=== PATIENT | male | born 1935 | race Caucasian/White ===

== ENCOUNTER 2017-04-17 11:37 | Emergency (ER) | payer OTHER, MEDICARE ==
[~2017-04-17] VITALS: Ht 177.8 cm; Wt 77.1 kg
--- NOTE | ~2017-04-17 | EKG ---
[place] [address] 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1935 Requested By: yEal Sams Order Number: [id number] MD: Angel Sanders Measurements Intervals [place] Rate: 108 P: 28 VT: 197 QRS: 3 QRSD: 140 T: -28 QT: 363 QTc: 487 Interpretive Statements Sinus tachycardia Right bundle branch block Possible Inferior infarct, age indeterminate Compared to ECG 05/25/2014 05:37:11 No significant changes Electronically Signed On 04-18-2017 14:22:12 BRANCH MAKER by Angel Sanders [email or web address] <ELECTRONICALLY SIGNED> By: Angel Sanders MD, [facility] 04/18/17 1422 D: [id number] Angel Sanders MD, FAC /EPI
[~2017-04-17 11:37] MED LIST: ASPIRIN EC81 M1 PO; ATORVASTATIN CA10 MG PO; CALCIUM PO; CALCIUM500 M1 PO; CARDURA4 MG PO; DILTIAZEM 24HR360 M1 PO; FISH OIL 1,001000 M1 PO; LIVALO2 MG PO; MULTIVITAMINS PO; NORCO 5-325 TA1 EACH PO; PERINDOPRIL ERBU2 MG PO; SEROQUEL200 MG PO; VITAMIN E400 UNI6 PO; VITAMINC500 PO; WELLBUTRIN 100100 MG PO; ZOLOFT100 MG PO
[2017-04-17 12:10] LABS: ABSOLUTE NEUTROPHILS 7.5 thou/uL (1.4-8.2); BASOPHILS 0.7 % (0.0-2.0); EOSINOPHILS 4.2 % (0.0-3.0); HEMATOCRIT 37.6 % (42.0-52.0); HEMOGLOBIN 12.7 gm/dL (14.0-18.0); LYMPHOCYTES 28.4 % (24.0-44.0); MCH 31.3 pg (26.0-34.0); MCHC 33.9 g/dL (28.0-37.0); MCV 92.4 fL (80.0-100.0); PLATELET COUNT 192 thou/uL (150-400); POLYS 60.7 % (36.0-66.0); RBC 4.07 mil/uL (4.50-6.00); RDW 20.1 % (10.5-14.5); WBC 12.4 thou/uL (4.0-11.0)
[2017-04-17 12:22] LABS: ANION GAP 7 mmol/L (7-16); BUN 17 mg/dL (7-18); CHLORIDE 103 mmol/L (98-107); CO2 28 mmol/L (21-32); CREATININE 1.4 mg/dL (0.7-1.3); GLUCOSE 124 mg/dL (74-106); POTASSIUM 4.3 mmol/L (3.5-5.1); SODIUM 138 mmol/L (136-145)
[2017-04-17 12:25] LABS: TROPONIN-I < 0.04 ng/mL (<0.06)
[2017-04-17 13:47] LABS: URINE BILIRUBIN NEGATIVE (Negative); URINE BLOOD NEGATIVE (Negative); URINE CLARITY CLEAR; URINE COLOR YELLOW; URINE GLUCOSE-RANDOM* NEGATIVE (Negative); URINE KETONES NEGATIVE (Negative); URINE LEUKOCYTES-REFLEX NEGATIVE (Negative); URINE NITRITE-REFLEX NEGATIVE (Negative); URINE PROTEIN (DIPSTICK) NEGATIVE (Negative); URINE UROBILINOGEN 0.2 E.U./dl (0.2-1.0)
== END 2017-04-17 15:49 | disposition home or self-care (01) ==
LOC: ER 11:37
PROVIDERS: Emergency Medicine
DX: R07.9 Chest pain, unspecified (principal); I10 Essential (primary) hypertension; E78.00 Pure hypercholesterolemia, unspecified; F31.9 Bipolar disorder, unspecified; F41.9 Anxiety disorder, unspecified; G54.2 Cervical root disorders, not elsewhere classified; Z85.71 Personal history of Hodgkin lymphoma

== ENCOUNTER → 2019-09-25 | Outpatient (CLI) | payer OTHER, MEDICARE | LOC: SJCVCIMAG 12:43 | PROVIDERS: ATTEND Internal Medicine Cardiovascular Disease | DX: I08.8 Other rheumatic multiple valve diseases (principal); I11.9 Hypertensive heart disease without heart failure; I45.10 Unspecified right bundle-branch block; R94.31 Abnormal electrocardiogram [ECG] [EKG]; E78.00 Pure hypercholesterolemia, unspecified; F03.90 Unspecified dementia, unspecified severity, without behavioral disturbance, psychotic disturbance, mood disturbance, and anxiety; Z87.898 Personal history of other specified conditions; Z79.899 Other long term (current) drug therapy; Z82.49 Family history of ischemic heart disease and other diseases of the circulatory system; Z87.891 Personal history of nicotine dependence ==

== ENCOUNTER → 2020-04-29 | Outpatient (CLI) | payer OTHER, MEDICARE | LOC: SJCVC 14:21 | PROVIDERS: ATTEND Internal Medicine Cardiovascular Disease | DX: R94.31 Abnormal electrocardiogram [ECG] [EKG] (principal); I45.10 Unspecified right bundle-branch block; I11.9 Hypertensive heart disease without heart failure; I35.0 Nonrheumatic aortic (valve) stenosis; E78.00 Pure hypercholesterolemia, unspecified; F03.91 Unspecified dementia, unspecified severity, with behavioral disturbance; Z79.899 Other long term (current) drug therapy; Z87.891 Personal history of nicotine dependence ==

== ENCOUNTER → 2020-07-05 | Outpatient (CLI) | payer OTHER, MEDICARE | LOC: RAD 15:20 | PROVIDERS: ATTEND Family Medicine | DX: J98.11 Atelectasis (principal) ==

== ENCOUNTER 2020-11-22 22:23 | Inpatient (IN) | payer OTHER, MEDICARE ==
[~2020-11-22] VITALS: Ht 177.8 cm; Wt 78.3 kg
--- NOTE | ~2020-11-22 | EMS ---
[address] [address] EMS Patient Care Report Name: CARLOS A DE LA ROSA JR Room #: REG SILAS Iqbal#: [id number] Admission: 11/22/20 Attend Phys: Discharge: Date of : 33 Report #: [id number] THIS REPORT FOR: //name// Report Transmitted: 11/22/2020 22:02 EMS Care Summary [facility] Incident [id number] @ 11/22/2020 21:35 Incident Location [address] [place] [address] Patient CARLOS A DE LA ROSA Male, 85 Years 1935 Patient Address [address] [place] [address] Patient History Dementia,Hypertension (HTN), Patient Allergies No known allergies, Patient Medications Pantoprazole, Diltiazem, Namenda, Sertraline, Chief Complaint fall/unable to care for himself Disposition Transported No Lights/[place] Reason Falls Transported To [facility] Narrative The reported getting up to use the restroom tonight and finding the pt on the floor in the bathroom. She said she was unsure how long he had been on the floor, but said it couldn't have been very long as they hadn't been in bed for much time. The pt denied injury from the fall, but said he had some mild low [address] [address] EMS Patient Care Report Name: CARLOS A DE LA ROSA JR Room #: REG [facility]#: [id number] Admission: 11/22/20 Attend Phys: Discharge: Date of : 33 Report #: [id number] back pain from laying on the floor. The pt denied headache, nausea, shortness of breath or chest pain. He was unsure why he fell. The pt's said the pt has been falling more over the past 2 weeks. She said he has been able to get up on his own until tonight. The also said the pt has had a decline in his mentation over the past 2 weeks and she didn't think he could care for himself anymore. She wanted him taken to [facility] for evaluation. The pt said he had both Covid injections several months ago. He denied recent illness, cough or fever. The pt was laying on the floor in the bathroom in a supine position. HPI, PMH, Exam, Vitals. The pt was helped up and he was able to walk to the cot. I informed the pt and his the [place] was "high volume" and that could delay his care if they chose to go there. The said he had to go there as that is where his daycare director was. She said she was going to call the daycare director and have him make arrangements for the pt. I explained that there was no need to call him tonight and that we would take the pt to [place]. He was moved to the unit. En route: Vitals. Biocom to [place]. No orders req'd/rec'd. The pt was moved to ER#9. Care released to staff. Initial Vitals @22:17P: 82,R: 18,BP: 107/60,Pain: 2/10,GCS: 15,SpO2: 94,Revised Trauma: 12, @22:00P: 84,R: 18,BP: 108/60,Pain: 2/10,GCS: 15,Temp: 98.2F,Glucose: 136,SpO2: 97,Revised Trauma: 12, Assessments @22:13MENTAL:Person Oriented,Time Oriented,Place Oriented,Event Oriented,SKIN:HEENT:Head/Face: No Abnormalities,Neck/Airway: No Abnormalities,LUNG SOUNDS:General: No Abnormalities,ABDOMEN:General: No Abnormalities,PELVIS//GI:No Abnormalities,EXTREMITIES:Left Arm: No Abnormalities,Right Arm: No Abnormalities,Left Leg: No Abnormalities,Right Leg: No Abnormalities,PULSE:NEURO:No Abnormalities, Impression Altered Mental Status Procedures @22:18Surgical Mask on PatientResponse: Unchanged Timeline 21:33,Call Received 21:33,Psap Call 21:35,Dispatched 21:36,En Route 21:56,On Scene 21:57,At Patient 22:00,BP: 108/60 M,PULSE: 84,RR: 18 R,SPO2: 97 Ox,ETCO2: ,B,PAIN: 2,GCS: [address] [address] EMS Patient Care Report Name: CARLOS A DE LA ROSA JR Room #: REG Rasheed#: [id number] Admission: 11/22/20 Attend Phys: Discharge: Date of : 31 Report #: [id number] 15, 22:08,Depart Scene 22:17,BP: 107/60 M,PULSE: 82,RR: 18 R,SPO2: 94 Ox,ETCO2: ,BG: ,PAIN: 2,GCS: 15, 22:18,Surgical Mask on Patient,Response: Unchanged 22:19,At Destination 22:31,Call Closed Disclaimer v1.1 Copyright 2020 [employer] This EMS Care Summary contains data elements from the applicable legal record (which may be displayed differently). It is designed to provide pertinent information for the following purposes: continuity of care, clinical quality, and state data reporting. The complete legal record is available to ED staff and administrators of the receiving hospital in [facility]'s Patient Tracker. All data is provided "as is."
[2020-11-22 22:24] VITALS: BP 114/51
[2020-11-22 23:25] LABS: ABSOLUTE NEUTROPHILS 4.1 thou/uL (1.4-8.2); BASOPHILS 0.5 % (0.0-2.0); EOSINOPHILS 2.2 % (0.0-3.0); LYMPHOCYTES 17.5 % (24.0-44.0); MCH 28.2 pg (26.0-34.0); MONOCYTES 6.1 % (1.0-8.0); PLATELET COUNT 244 thou/uL (150-400); POLYS 73.7 % (36.0-66.0); RBC 1.93 mil/uL (4.50-6.00); RDW 18.7 % (10.5-14.5); WBC 5.6 thou/uL (4.0-11.0)
[2020-11-22 23:26] LABS: HEMOGLOBIN 5.4 gm/dL (14.0-18.0)
[2020-11-22 23:32] LABS: ANION GAP 8 mmol/L (7-16); BUN 45 mg/dL (7-18); CALCIUM 8.5 mg/dL (8.5-10.1); CHLORIDE 105 mmol/L (98-107); CO2 25 mmol/L (21-32); CREATININE 1.5 mg/dL (0.7-1.3); GLUCOSE 128 mg/dL (74-106); POTASSIUM 4.4 mmol/L (3.5-5.1); SODIUM 138 mmol/L (136-145)
[2020-11-22] MEDS ORDERED: DILTIAZEM ER180 M2 PO (23:35)
[2020-11-22] MEDS ORDERED: NAMENDA 10 MG T10 MG PO (23:36)
[2020-11-22] MEDS ORDERED: CRESTOR5 MG PO (23:38)
[2020-11-22 23:39] LABS: APTT 23.5 Seconds (24.5-32.8); INR 0.98; PROTIME 10.7 Seconds (10.5-12.1)
[2020-11-22] MEDS ORDERED: SEROQUEL 25 MG25 MG PO (23:40)
[2020-11-22 23:42] LABS: ALBUMIN 3.1 g/dL (3.4-5.0); SGOT 22 U/L (15-37); SGPT 23 U/L (16-63); TOTAL BILIRUBIN 0.2 mg/dL (0.2-1.0); TROPONIN-I <0.06 ng/mL (<0.06)
[2020-11-22] MEDS ORDERED: PROTONIX40 M4 PO (23:44)
[2020-11-22] MEDS ORDERED: COLACE100 MG PO (23:45)
[2020-11-22] MEDS ORDERED: VITAMIN B COMP1 EACH PO (23:45)
[2020-11-22 23:55] LABS: ANISOCYTOSIS 2+
[2020-11-23] VITALS (11 sets, daily range): BP systolic 104–139; BP diastolic 50–91
[2020-11-23 00:57] LABS: URINE BILIRUBIN NEGATIVE (Negative); URINE BLOOD NEGATIVE (Negative); URINE CLARITY CLEAR; URINE COLOR YELLOW; URINE GLUCOSE-RANDOM* NEGATIVE (Negative); URINE KETONES NEGATIVE (Negative); URINE LEUKOCYTES-REFLEX NEGATIVE (Negative); URINE NITRITE-REFLEX NEGATIVE (Negative); URINE PROTEIN (DIPSTICK) NEGATIVE (Negative); URINE UROBILINOGEN 0.2 E.U./dl (0.2-1.0)
--- NOTE | 2020-11-23 12:22 | EKG ---
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: matt : 1935 Requested By: Robert Charles Order Number: [id number] MD: Daniel Burnett Measurements Intervals [place] Rate: 81 P: -9 [place]: 205 QRS: 5 QRSD: 143 T: 1 QT: 406 QTc: 472 Interpretive Statements Sinus rhythm Right bundle branch block Inferior infarct, age indeterminate Compared to ECG 04/17/2017 11:47:34 Sinus tachycardia no longer present Myocardial infarct finding still present Electronically Signed On 11-23-2020 12:22:17 CDT by Daniel Burnett [email or web address] <ELECTRONICALLY SIGNED> By: Daniel Burnett MD 11/23/20 1222 50 50 Daniel Burnett MD /RAPHAEL
[2020-11-23 12:35] LABS: HEMATOCRIT 25.4 % (42.0-52.0)
[2020-11-23 12:37] LABS: HEMOGLOBIN 8.2 gm/dL (14.0-18.0)
--- NOTE | 2020-11-23 14:10 | NUR ---
[age] OLD MALE ADMITTED TO 2N ROOM 216. PT WAS BROUGHT IN TO ER PER EMS AFTER BEING FOUND ON THE FLOOR AT HOME FROM A FALL. PT ALERT TO SELF ONLY. PT DAUGHTER AT BEDSIDE TO GIVE INFORMATION FOR ADMISSION ASSESSMENT. VSS, IVF AND PROTONIX GTT INFUSING PER ORDER. PT NPO FOR EGD TODAY. PT DENIES PAIN/SOA. PT UP TO RESTROOM WITH STABNDBY ASSIST. WILL CONTINUE TO MONITOR.
--- NOTE | 2020-11-23 15:47 | NUR ---
PT RETURN TO ROOM FROM GI LAB.
--- NOTE | 2020-11-23 17:29 | NUR ---
PT HAD IV IN LEFT HAND BUT PULLED IT OUT.
--- NOTE | 2020-11-24 03:13 | NUR ---
ASSUMED CARE OF PT AT 2130. PT CONFUSED TO PLACE/TIME/SITUATION. DOES RESPOND TO NAME. DOES NOT FOLLOW COMMANDS THROUGH OUT. PT CONTINUOUSLY ATTEMPT TO GET OOB. AT [address] IN FITZ SOFT WRIST RESTRAINTS. PT'S DAUGHTER, NELLY, WAS NOTIFIED OF FITZ WRIST RESTRAINTS. NELLY STATE THAT SHE WILL COME SIT WITH PT IN THE AM. PT IS NOT BEING MONITORED R/T DOES NOT KEEP ON, ORDER WRITTEN FOR OK TO REMOVE MONITOR. VSS, AFEBRILE. FITZ WRIST RESTRAINTS INTACT AND SEEM TO BE EFFECTIVE, PT SLEEPING AT THIS TIME. NO BM. SLOW PROGRESS TOWARDS DC GOALS. WILL CONTINUE TO MONITOR.
[2020-11-24 03:38] LABS: HEMATOCRIT 24.8 % (42.0-52.0); HEMOGLOBIN 8.1 gm/dL (14.0-18.0); MCH 28.7 pg (26.0-34.0); MCHC 32.6 g/dL (28.0-37.0); MCV 88.1 fL (80.0-100.0); RBC 2.81 mil/uL (4.50-6.00); RDW 16.9 % (10.5-14.5); WBC 8.6 thou/uL (4.0-11.0)
[2020-11-24 04:09] VITALS: BP 114/73
--- NOTE | 2020-11-24 05:47 | NUR ---
2030 patient out of bed without assistance. Nurse responded and patient fell. See post fall assessment for status. Family notified and Andrew GONZALESP notitified. Bed alarm on and patient observed linsey.
[2020-11-24 06:24] LABS: CALCIUM 7.6 mg/dL (8.5-10.1); CREATININE 1.1 mg/dL (0.7-1.3); POTASSIUM 3.8 mmol/L (3.5-5.1)
[2020-11-24 07:41] VITALS: BP 124/73
--- NOTE | 2020-11-24 12:28 | 2DMMODE ---
[facility] [address] [place] [address] 2 D/M-MODE ECHOCARDIOGRAM Name: CARLOS A DE LA ROSA Room #: 216-P ADM IN M.R.#: [id number] Admission: 11/23/20 Attend Phys: Angela Freitas Discharge: Date of : 33 Report #: [id number] THIS REPORT FOR: cc: Manas Cox MD, Neal A. MD Lammoglia, Francisco J. MD ~ APPROVED REPORT Study performed: 11/23/2020 11:29:09 EXAM: Comprehensive 2D, Doppler, and color-flow Echocardiogram Patient Location: Bedside Room #: 216 Status: on-call BSA: 1.97 HR: 95 bpm BP: 117/66 mmHg Rhythm: NSR Other Information Study Quality: Adequate Risk Factors: Cardiac Risk Factors: HTN Indications Aortic Valve Disease Syncope 2D Dimensions IVSd: 12.57 (7-11mm) LVOT Diam: 23.00 (18-24mm) LVDd: 33.32 mm PWd: 15.12 (7-11mm) Ascending Ao: 35.83 (22-36mm) LVDs: 23.44 (25-40mm) Aortic Root: 32.77 mm LV Single Plane 4CH: 53.43 % LV Single Plane 2CH: 59.74 % Biplane EF: 55.6 % Volumes Left Atrial Volume (Systole) Single Plane 4CH: 45.16 mL Single Plane 2CH: 48.90 mL LA ESV Index: 27.00 mL/m2 [facility] [address] [address] 2 D/M-MODE ECHOCARDIOGRAM Name: CARLOS A DE LA ROSA Room #: 216-P [facility] IN .R.#: [id number] Admission: 11/23/20 Attend Phys: Angela Jose Discharge: Date of : 31 Report #: [id number] Aortic Valve AoV Peak Marques.: 4.53 m/s AO Peak Gr.: 81.92 mmHg LVOT Max P.46 mmHg AO Mean Gr.: 54.16 mmHg LVOT Mean P.04 mmHg AO V2 Mean: 3.62 m/s LVOT Max V: 0.93 m/s AO V2 VTI: 96.51 cm LVOT Mean V: 0.68 m/s EZRA (VTI): 0.87 cm2 LVOT V1 VTI: 20.67 cm EZRA Vmax: 0.83 cm2 AI Vmax: 3.44 m/s SV (LVOT): 83.50 mL AI Walsh: 5.14 m/s2 AI PHT: 195.91 ms Mitral Valve E/A Ratio: 2.6 MV Decel. Time: 157.71 ms MV E Max Marques.: 1.74 m/s MV A Marques.: 0.68 m/s MV PHT: 45.74 ms Pulmonary Valve PV Peak Marques.: 0.80 m/s PV Peak Gr.: 2.58 mmHg Tricuspid Valve TR Peak Marques.: 2.59 m/s RAP Estimate: 10.00 mmHg TR Peak Gr.: 26.81 mmHg PA Pressure: 37.00 mmHg Left Ventricle The left ventricle is normal size. There is normal LV segmental wall motion. Moderate concentric left ventricular hypertrophy. The left ventricular systolic function is normal. The left ventricular ejection fraction is within the normal range. LVEF is 55-60%. Right Ventricle The right ventricle is normal size. The right ventricular systolic function is normal. Atria The left atrium size is normal. The right atrium size is normal. Aortic Valve Aortic valve is calcified. Mild to moderate aortic regurgitation. The maximum aortic valve pressure gradient is 82 mmHg and the mean gradient is 54 mmHg. Calculated aortic valve area is 0.9 cm2. Severe aortic stenosis. [facility] [address] [place] [address] 2 D/M-MODE ECHOCARDIOGRAM Name: RJCARLOS A ALFONZO Room #: 216-P [facility] IN ..#: [id number] Admission: 11/23/20 Attend Phys: Angela Jose Discharge: Date of : 31 Report #: [id number] Mitral Valve The mitral valve is normal in structure. Trace to mild mitral regurgitation. No evidence of mitral valve stenosis. Tricuspid Valve The tricuspid valve is normal in structure. Trace to mild tricuspid regurgitation. Pulmonary artery pressure is 37 mmHg. Pulmonic Valve The pulmonary valve is normal in structure. There is no pulmonic valvular regurgitation. Great Vessels The aortic root is normal in size. The ascending aorta is normal in size. IVC is dilated and collapses >50% with inspiration. Pericardium There is no pericardial effusion. <Conclusion> The left ventricle is normal size. Moderate concentric left ventricular hypertrophy. LVEF is 55-60%. Aortic valve is calcified. Mild to moderate aortic regurgitation. The maximum aortic valve pressure gradient is 82 mmHg and the mean gradient is 54 mmHg. Calculated aortic valve area is 0.9 cm2. Severe aortic stenosis. The mitral valve is normal in structure. Trace to mild mitral regurgitation. The tricuspid valve is normal in structure. Trace to mild tricuspid regurgitation. Pulmonary artery pressure is 37 mmHg. The pulmonary valve is normal in structure. There is no pericardial effusion. <ELECTRONICALLY SIGNED> By: Ja Kauffman MD 11/24/20 1228 1228 1228 Ja Kauffman MD /INF
[2020-11-24 15:48] VITALS: BP 118/61
--- NOTE | 2020-11-24 17:59 | NUR ---
PT ALERT TO SELF ONLY. VERY RESTLESS AND SOMEWHAT AGITATED. PT PULLED OUT IV. VSS. PT TOLERATES MEDS AND MEALS. PT UP WITH ASSIST OF ONE. PT AT BEDSIDE THIS MORNING. PT DAUGHTER HERE NOW. WILL COTINUE TO MONITOR.
[2020-11-24 20:49] VITALS: BP 124/70
[2020-11-25 02:58] LABS: HEMATOCRIT 23.1 % (42.0-52.0); HEMOGLOBIN 7.3 gm/dL (14.0-18.0); MCH 28.4 pg (26.0-34.0); MCHC 31.7 g/dL (28.0-37.0); MCV 89.7 fL (80.0-100.0); RBC 2.57 mil/uL (4.50-6.00); RDW 17.3 % (10.5-14.5); WBC 11.3 thou/uL (4.0-11.0)
[2020-11-25 06:05] VITALS: BP 127/78
[2020-11-25 07:25] VITALS: BP 89/80
[2020-11-25 07:41] LABS: BE(vivo) -10.7 mmol/L (-2 to +3); HCO3 15.7 mmol/L (22.0-26.0); PCO2 37.1 mmHg (35.0-45.0); PO2 264.3 mmHg (80.0-100.0); sO2 99.5 % (92.0-98.0)
[2020-11-25 07:42] LABS: pH 7.245 (7.360-7.450)
[2020-11-25 07:45] VITALS: BP 121/70
--- NOTE | 2020-11-25 08:20 | NUR ---
PT ABLE TO FOLLOW DIRECTIONS AND SWOLLOW PILLS WITH APPLESAUCE WHILE DAUGHTER STILL IN THE ROOM, AFTER DAUGHTER LEFT PT BECAME MORE IMPULSIVE, ANXIOUS, PULLED IV TUBING OUT SEVERAL TIMES CLEANED UP AND REPLACED TUBING IV CONTINUING TO INFUSE, RECEIVED 2 1 TIME ORDER FOR LORAZEPAM GIVEN AT 2340 AND 0230, PT REMAINS RESTLESS BUT WITH SLOWER MOVEMENT, VSS, NO COMPLAINTS, DURING BEDSIDE REPORT PTS BREATHING NOTED TO BE WHEEZY WITH RATE IN UPPER 30'S, BP AND O2 SAT HAD DROPPED AND RAPID CALLED DR BILLINGS ON THE FLOOR, REPORT GIVEN TO NEXT SHIFT TO CON'T PPOC.
--- NOTE | 2020-11-25 09:37 | NUR ---
Pt. found with low 02 sats so FIRE MANAGEMENT TECHNICIAN initiated-see flowsheet
--- NOTE | 2020-11-25 11:09 | EKG ---
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 : 1935 Requested By: Manas oCx Order Number: [id number] MD: Anton Soto Measurements Intervals [place] Rate: 116 P: 240 [place]: 167 QRS: 12 QRSD: 140 T: 8 QT: 333 QTc: 463 Interpretive Statements Sinus or ectopic atrial tachycardia Consider right atrial enlargement Right bundle branch block Compared to ECG 11/22/2020 22:51:55 Sinus rhythm no longer present Myocardial infarct finding no longer present Electronically Signed On 11-25-2020 11:09:00 CDT by Anton Soto [email or web address] <ELECTRONICALLY SIGNED> By: Anton Soto MD, [facility] 11/25/20 1109 0742 0742 Anton Stoo MD, [facility] /EPI
--- NOTE | 2020-11-25 13:23 | NUR ---
Nutrition screen risk for wt loss and poor intake. Advanced age 85, pt with dementia and lymphoma/MALToma stomach stage I. Admitted with GIB. Possible wt loss 2-13 lb but cannot confirm at this time. Did eat well yesterday. STEEL TURNER called today. Will followup again in next 1-2 days
--- NOTE | 2020-11-25 15:19 | NUR ---
PHOTOGRAPHIC HAND DEVELOPER CALLED THIS MORNING AT SHIFT CHANGE (SEE FLOW SHEET) DUE TO LOW 02 68% AND UNRESPONSIVE. DR ON UNIT CALLED FAMILY, AND PT WAS MADE DNR. PT , DAUGHTER AND SON AT BEDSIDE THIS SHIFT. PROTONIX GTT INFUSING PER ORDER. KELLY PLACED. 10L HIGH FLOW O2 IN PLACE. PT STILL TACHYPNEIC PRN MORPHINE GIVEN FOR AIR HUNGER. PT NOT PROGRESSING AT THIS TIME WILL CONTINUE TO MONITOR.
--- NOTE | 2020-11-25 15:46 | P ---
[facility] [place] [place] [address] PROCEDURE REPORT Name: CARLOS A DE LA ROSA Room #: 216-P ADM IN M.R.#: [id number] Admission: 11/23/20 Attend Phys: Manas Cox MD Discharge: Date of : 31 Report #: [id number] THIS REPORT FOR: cc: Manas Cox MD, Neal A. MD McElhinney, Christian C. MD ~ cc: Manas Cox MD, Norm Balderrama MD DATE OF SERVICE: 11/23/2020 PROCEDURE PERFORMED: Upper endoscopy with biopsies and bleeding control. HISTORY OF PRESENT ILLNESS: The patient is an 85-year-old male who had recent falls. He does have a history of significant dementia. On admission, he was noted to be significantly anemic with a hemoglobin of 5.4; he has now been transfused 2 units and it is 8.2 on his repeat at 12:25 today. He has a history of potential MALToma of the stomach. Also, history of lymphoma of the colon, status post partial resection, history of peptic ulcer disease in the past as well as possible gastric AVMs. He has been on Protonix on a daily basis, but also taking aspirin daily. Plan is for upper endoscopy for further evaluation. DESCRIPTION OF PROCEDURE: The risks and benefits of the procedure were explained to the patient's , those risks including but not limited to bleeding, perforation and the risk of sedation. She understood these risks and gave informed consent. Sedation was given using propofol per Anesthesia. Next, using a standard Olympus upper endoscope, the scope was placed in the patient's mouth and advanced under direct vision through the esophagus, stomach and into the second portion of the duodenum. The esophagus was normal throughout other than the mild erythematous area noted on withdrawal. I suspect that may be secondary to a mild trauma from the scope, no evidence of bleeding. GE junction was normal. There was a diffuse moderate gastritis in the fundus and body. Biopsies were obtained to rule out H. pylori. There was no evidence of ulcerations or erosions. There was no evidence of bleeding throughout the exam today. In the antrum; however, there were changes consistent with GAVE. Again, no evidence of bleeding, but due to his history of anemia, I then proceeded with APC cautery of the area. No bleeding was noted after cauterization as well. The pylorus was otherwise normal. The duodenal bulb, first and second portion were all normal. Again, no evidence of bleeding or old blood on exam today. The scope was then withdrawn and the procedure terminated. The patient tolerated the procedure well. IMPRESSION: 1. 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 No active bleeding, but possible etiology of recent anemia, status post ACP cautery today. 2. Moderate gastritis. 3. Otherwise, normal upper endoscopy. [address] [address] PROCEDURE REPORT Name: RJCARLOS A ALFONZO Room #: 216-P [facility] [place] M.R.#: [id number] Admission: 11/23/20 Attend Phys: Manas Cox MD Discharge: Date of : 31 Report #: [id number] RECOMMENDATIONS: Continue b.i.d. PPI therapy. We will add Carafate at this time. Continue to monitor hemoglobin closely. Continue to hold NSAIDs. If the patient has continued drop in hemoglobin in the near future, may need to consider colonoscopy or further workup such as M2 capsule endoscopy. We will continue to monitor closely. Thank you for allowing me to participate in his care. <ELECTRONICALLY SIGNED> By: Gerardo Galvan MD 11/25/20 1546 1434 2109 Gerardo Galvan MD /nt
--- NOTE | 2020-11-25 15:46 | HC ---
[facility] [address] CONSULTATION Name: CARLOS A DE LA ROSA Room #: 216-P [facility] IN M.R.#: [id number] Admission: 11/23/20 Attend Phys: Manas Cox MD Discharge: Date of : 31 Report #: [id number] THIS REPORT FOR: cc: Manas Cox MD, Neal A. MD McElhinney, Christian C. MD ~ cc: Manas Cox MD, Norm Balderrama MD DATE OF SERVICE: 11/23/2020 HISTORY OF PRESENT ILLNESS: The patient is an 85-year-old male with recent near-syncopal episodes at home and a fall. The patient has a history of dementia and is unable to give any significant history. His daughter is present at this time and she is able to give some history. He was noted to be significantly anemic on admission with a hemoglobin of 5.4. He has now received 2 units of packed cells. His vital signs have now stabilized. There have been no signs of obvious melena recently at home, apparently no nausea, vomiting or hematemesis. He has had previous upper GI bleeds. I obtained a copy of his medical history from his daughter. 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 He has been taking Protonix on a daily basis. He is also on aspirin daily. His stool was Hemoccult positive through the Emergency Room, was noted to have dark stools on rectal exam. There has been no recent history of abdominal pain. His daughter reports intermittent constipation symptoms. No diarrhea. His weight has been stable. He has had a previous partial colon resection in 2006 for MALToma of the colon. 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 pylori negative in the past; previous history of peptic ulcer disease as well as gastric AVMs; history of dementia; cataract surgery. MEDICATIONS AT HOME: Sertraline, Cardizem, rosuvastatin, quetiapine, Protonix 40 mg on a daily basis, Namenda, ____. Takes multivitamins, vitamin D, vitamin B, stool softener. He is taking aspirin. He has been vaccinated for COVID. ALLERGIES: No known drug allergies. REVIEW OF SYSTEMS: Very limited due to his dementia, but as per HPI. PHYSICAL EXAMINATION: VITAL SIGNS: Temperature 36.4. Recent vitals, pulse 97, respiratory rate 24, blood pressure 126/71. GENERAL: He is awake, in no distress. He is confused when answering most [facility] [address] [place] [address] CONSULTATION Name: RJCARLOS A ALFONZO Room #: 216-P [facility] IN .R.#: [id number] Admission: 11/23/20 Attend Phys: Manas Cox MD Discharge: Date of : 31 Report #: [id number] questions. HEENT: Sclerae nonicteric. Oropharynx clear. NECK: Supple, without lymphadenopathy. CARDIOVASCULAR: Regular rate. CHEST: Clear to auscultation anteriorly bilaterally. ABDOMEN: Soft, nontender, nondistended. Normoactive bowel sounds. EXTREMITIES: No cyanosis, clubbing or edema. LABORATORY DATA: WBC is 5.6, hemoglobin 5.4 before his 2 units of packed cells, platelet count 244. INR is 0.98. Sodium 138, potassium 4.4, chloride 105, bicarbonate 25, BUN 45, creatinine 1.5, glucose 128, calcium 8.5, total bilirubin 0.2, AST 22, ALT is 23, alkaline phosphatase 41. Troponin less than 0.06. Total protein 7.0, albumin 3.1. COVID is negative on admission. UA is normal. He underwent a CT scan of the head and neck with CT arteriogram, no acute intracranial process, white matter disease suggestive of small vessel ischemic white matter changes. Unremarkable CTA of the brain and of the neck. Chest x-ray, scattered bilateral interstitial infiltrations, findings suggest acute pneumonitis versus pulmonary venous congestion. ASSESSMENT AND PLAN: Anemia, recent history of melanotic type stool in the Emergency Room on rectal exam. 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 He has now received 2 units of packed cells. He is on a PPI drip at this time. He has been n.p.o. Plan is for EGD today for further evaluation. I discussed this with the patient as well as his daughter. She agrees. I will make further recommendations after endoscopy. We will hold NSAIDs at this time. Thank you for allowing me to participate in his care. <ELECTRONICALLY SIGNED> By: Gerardo Galvan MD 11/25/20 1546 0931 05 Gerardo Galvan MD /nt
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
[2020-11-25 17:04] LABS: HEMATOCRIT 22.1 % (42.0-52.0); HEMOGLOBIN 7.3 gm/dL (14.0-18.0); MCHC 32.8 g/dL (28.0-37.0); MCV 88.3 fL (80.0-100.0); RBC 2.5 mil/uL (4.50-6.00); RDW 17.1 % (10.5-14.5); WBC 10.4 thou/uL (4.0-11.0)
[2020-11-25 20:31] VITALS: BP 104/71
[2020-11-26 00:01] VITALS: BP 104/71
--- NOTE | 2020-11-26 04:03 | NUR ---
ASSUMED CARE OF PT AT 1900, PT IS UNRESPONSIVE TO VERBAL STIMULATION AND WITHDRAWLS TO PAIN. ASSESSMENT COMPLETED NOTED, PT RECIEVED ON 9L HFNC WITH LABORED BREATHING. AT 2245 PT AWAKE, C/O PAIN, PT BECAME AGITATED, WITH INCREASED HR, AND DECREASED SPO2 INTO THE 80'S. PT PLACED ON 15L NRB AT THIS TIME, PAIN TREATED WITH MEDICATION ORDERED. UPON REASSESSMENT AFTER 10 MINUTES PT WAS ALSEEP IN NO APPARENT PAIN. WILL CONTINUE TO MONITOR PT AND WORK TOWARDS POC.
[2020-11-26 04:50] VITALS: BP 118/74
[2020-11-26 05:22] LABS: HEMATOCRIT 22.4 % (42.0-52.0); MCH 27.9 pg (26.0-34.0); MCHC 31.5 g/dL (28.0-37.0); MCV 88.5 fL (80.0-100.0); RBC 2.53 mil/uL (4.50-6.00); RDW 17.7 % (10.5-14.5); WBC 13.2 thou/uL (4.0-11.0)
[2020-11-26 05:47] LABS: CALCIUM 7.3 mg/dL (8.5-10.1); CREATININE 1.9 mg/dL (0.7-1.3); POTASSIUM 4.6 mmol/L (3.5-5.1)
[2020-11-26 07:15] VITALS: BP 99/47
--- NOTE | 2020-11-26 09:06 | NUR ---
unable to visit with patient or family, provided BPCI letter and preferred provider list to patient chart, lives in home setting
[2020-11-26 15:30] VITALS: BP 105/66
--- NOTE | 2020-11-26 16:06 | NUR ---
Patient on non-rebreather non responsive. Sp with and son discussed hospice services at hospice house and home. Son reports Hospice house location closer. Faxed referral sp with Farzana in admissions she reports Hellen ARIAS will Come to [facility] today between [phone]. Updated at bedside.
--- NOTE | 2020-11-26 16:57 | NUR ---
HOSPICE NURSE TO EVALUATE PATIENT TODAY AND SPEAK WITH FAMILY. PATIENT CONTINUES ON NON REBREATHER 15L. NOT MAKING PROGRESS TODAY. NPO. DROWSY AND NON RESPONSIVE AT TIMES. PATIENT GIVEN MORPHINEX2. PATIENT EXPERIENCES INTERMITANT PERIODS OF AGITATION AND RESTLESSNESS. FAMILY AT BEDSIDE DURING THE DAY TODAY.
--- NOTE | 2020-11-26 17:06 | PATH ---
[facility] [address] [place] [address] PATHOLOGY RPT PROCEDURE Name: RJCARLOS A ALFONZO Room #: 216-P ADM IN M.R.#: [id number] Admission: 11/23/20 Date of : 31 Discharge: Report #: [id number] Path Case #: [id number] [facility] Accession Number: [id number] . 01 Material submitted: . gastrointestinal site - GASTRITIS R/O H. PYLORI, KASH . 01 Clinical history: . EGD GI BLEED . 02 Diagnosis: Gastric mucosa, gastritis, endoscopic biopsy: - Mild chronic active gastritis. - Negative for intestinal metaplasia or atrophy. - Negative for gastric antral vascular ectasia. - Negative for Helicobacter pylori (properly controlled immunohistochemical stain performed) (IUV/db; 11/26/2020) LBQ 11/26/2020 1320 Local . 02 Electronically signed: . Jazmín Chairez MD, Pathologist NPI- [id number] . 01 Gross description: . The specimen is received in formalin, labeled "Carlos A De La Rosa" with no designation on the specimen container. The specimen is labeled per the requisition "gastritis r/o H. pylori, KASH "". It consists of 3 cain irregular soft tissue fragments ranging from 0.2-0.6 cm in greatest dimension. The specimen is entirely [place] [facility] [place] . (MRF; 11/25/2020) MFE/MFE 11/25/20202033 [facility] . 02 Pathologist provided ICD-10: K29.50 . 02 CPT . 919988, [id number] Specimen Comment: A courtesy copy of this report has been sent to [phone], [phone] Specimen Comment: [phone] Specimen Comment: Report sent to / DR BOURNE Performed at: [address], [place] [id number] MD Mariusz Jain MD Phone: [phone] [address] [address] PATHOLOGY RPT PROCEDURE Name: CARLOS A DE LA ROSA Room #: 216-P ADM IN M.R.#: [id number] Admission: 11/23/20 Date of : 31 Discharge: Report #: [id number] Path Case #: [id number] Performed at: [address] [facility] [address] [id number] MD Jazmín Chairez MD Phone: [phone]
[2020-11-26 19:16] VITALS: BP 112/64
--- NOTE | 2020-11-27 02:32 | NUR ---
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
[2020-11-27 03:00] VITALS: BP 112/64
[2020-11-27 08:19] VITALS: BP 97/57
--- NOTE | 2020-11-27 11:30 | NUR ---
PT ASSESSED AT START OF SHIFT. DR. BILLINGS IN EARLY TO SEE PT. PT AWAKE AND CALM AT START AND THEN STARTED BEING IMPULSIVE AND PULLING OFF NONREBREATHER MASK-SAT DROPPED TO 70'S BUT RECOVERED AFTER REPLACED TO THE 90'S. MORPHINE GIVEN AND PT SETTLED DOWN SOON AFTER. FAMILY AT BEDSIDE. REPORT GIVEN TO RN AT HOSPICE. TRANSFERRING TO HOSPICE HOUSE AT THIS TIME PER AMBULANCE.
--- NOTE | 2020-11-27 14:45 | NUR ---
Patient to discharge to Hospice House today. [facility] for 11:00. Sp with [facility]. RN called report. no further needs.
== END 2020-11-27 12:13 | disposition hospice, home (50) | DRG 377 ==
LOC: ER 22:23 → EROBS 11-23 02:26 → 2N 11-23 02:26
PROVIDERS: Anesthesiology; Emergency Medicine; Nurse Practitioner; Nurse Practitioner Family; Specialist; ADMIT Family Medicine; ATTEND Family Medicine
DX: K31.811 Angiodysplasia of stomach and duodenum with bleeding (principal); J18.9 Pneumonia, unspecified organism; J96.00 Acute respiratory failure, unspecified whether with hypoxia or hypercapnia; G93.41 Metabolic encephalopathy; R65.11 Systemic inflammatory response syndrome (SIRS) of non-infectious origin with acute organ dysfunction; D62 Acute posthemorrhagic anemia; N17.9 Acute kidney failure, unspecified; I13.0 Hypertensive heart and chronic kidney disease with heart failure and stage 1 through stage 4 chronic kidney disease, or unspecified chronic kidney disease; K29.71 Gastritis, unspecified, with bleeding; Z20.822 Contact with and (suspected) exposure to COVID-19; E78.00 Pure hypercholesterolemia, unspecified; F41.9 Anxiety disorder, unspecified; F31.9 Bipolar disorder, unspecified; I65.23 Occlusion and stenosis of bilateral carotid arteries; F03.90 Unspecified dementia, unspecified severity, without behavioral disturbance, psychotic disturbance, mood disturbance, and anxiety; N18.9 Chronic kidney disease, unspecified; I35.0 Nonrheumatic aortic (valve) stenosis; I50.9 Heart failure, unspecified; G62.9 Polyneuropathy, unspecified; Z90.49 Acquired absence of other specified parts of digestive tract; Z85.72 Personal history of non-Hodgkin lymphomas; Z87.11 Personal history of peptic ulcer disease; Z98.49 Cataract extraction status, unspecified eye; Z79.899 Other long term (current) drug therapy
CPT/HCPCS: 10797; 62110; 62900; 70005